=== PATIENT | female | born 2005 | race Caucasian/White ===

== ENCOUNTER 2023-05-09 20:09 | Emergency (ER) | payer MEDICAID, SELFPAY ==
[2023-05-09 20:36] VITALS: BP 105/63; PULSE 97; RESP 16; TEMP 36.7; O2SAT 99; BMI 19.4
[2023-05-09 21:13] LABS: MANUAL DIFF FLAG NO
[2023-05-09 21:14] LABS: Basophils Percent Auto 0.5 % (0-2); Eosinophils Absolute Auto 0.1 X10*3/uL (0.0-0.4); Eosinophils Percent Auto 1.7 % (0-4); Hematocrit 41.6 % (37.0-47.0); Hemoglobin 14.4 g/dl (12.0-16.0); Imm Gran Abs Auto 0.01 X10*3/uL (0.00-0.03); Imm Gran Pct Auto 0.1 % (0.0-0.4); Lymphocytes Absolute Auto 1.7 X10*3/uL (1.2-4.9); Lymphocytes Percent Auto 22.6 % (20-40); Mean Corpuscular HGB Conc 34.6 g/dl (31.0-35.0); Mean Corpuscular Hemoglobin 29.8 pg (27.0-33.0); Mean Corpuscular Volume 86.1 fL (80.0-98.0); Mean Platelet Volume 10.7 fL (9.4-12.3); Monocytes Absolute Auto 0.5 X10*3/uL (0.1-1.2); Neutrophils Absolute Auto 5.2 x10*3/uL (2.0-8.3); Neutrophils Percent Auto 69.1 % (45-73); Platelet Count 258 X10*3/uL (160-400); Red Blood Count 4.83 X10*6/uL (4.20-5.50); White Blood Count 7.5 X10*3/uL (4.8-10.8)
[2023-05-09 21:15] LABS: Appearance Urine Clear; Color Urine Yellow; Glucose Urine UA Negative (Negative); Leukocyte Esterase Urine Negative (Negative); Nitrite Urine Negative (Negative); Specific Gravity - Urine 1.015 (1.005-1.025); Urine Blood Negative (Negative); Urine Ketones Negative (Negative); Urine Protein Negative (Neg-Trace)
[2023-05-09 21:37] LABS: Alanine Aminotransferase 11 U/L (0-31); Albumin Level 4.8 g/dL (3.5-5.0); Alkaline Phosphatase 76 U/L (39-117); Anion Gap 14 (12-20); Aspartate Amino Transferase 15 U/L (5-31); Bilirubin Total 0.5 mg/dL (0.0-1.0); Blood Urea Nitrogen 8 mg/dL (9-16); Calcium 9.8 mg/dL (8.4-10.2); Carbon Dioxide 25 mmol/L (22-29); Chloride 104 mmol/L (96-108); Creatinine Clr Calc Pharmacy 90.8; Estimated Glomerular Filt Rate > 60; Glucose Random 129 mg/dL (60-115); Potassium 3.3 mmol/L (3.3-5.1); Sodium 140 mmol/L (135-145)
--- NOTE | 2023-05-10 00:21 | ED.FEMALEGU ---
HPI - Female Genitourinary General Chief complaint: Urogenital-Female Stated complaint: ? UTI Time Seen by Provider: 05/09/23 23:09 Source: patient Mode of arrival: ambulatory Limitations: no limitations History of Present Illness HPI Narrative: 18 year old female with a past medical history of celiac disease presents to the ED accompanied by her two friends with a history of burning with urination for one month as well as lower back pain. She admits It [place] before I start to pee and after I finish. She claims that she took a UTI test from [facility] that was positive. The patient denies any new soaps or products that could be contributory to the irritation. Pt denies recent sexual activity as well as any concern for STI/STD. Patient admits last menses was last week, pt denies any concern for . She denies any new changes to discharge, denies any new odors or appearance to urine. Currently, patient denies any discomfort. MD elicited complaint: other (burning with urination) Onset (ago): week(s) Location of symptoms: urethra, vaginal and low back Female Urogenital Radiation: Non-Radiating Quality of pain: burning Consistency: intermittent Vaginal discharge: none Vaginal bleeding: none Exacerbating factors: urination Relieving factors: none Associated symptoms: back pain Treatment prior to arrival: NSAIDs Sexual activity: No Related Data Allergies Allergy/AdvReac Type Severity Reaction Status Date / Time No Known Allergies Allergy Verified 05/09/23 20:36 Review of Systems Constitutional: Constitutional: Reports as per HPI and Reports no additional constitutional complaints Cardiovascular: Cardiovascular: Reports no additional cardiovascular complaints Respiratory: Respiratory: Reports no additional respiratory complaints Gastrointestinal: Gastrointestinal: Reports no additional gastrointestinal complaints Genitourinary: Genitourinary: Reports no additional female genitourinary complaints [facility] Social History Social History Advance Directives: No Advance Directives Information Provided: Yes Physical Exam Vital Signs: Vital Signs: Last Vital Signs Temp 98.0 F 05/09/23 20:36 Pulse 97 05/09/23 20:36 Resp 16 05/09/23 20:36 BP 105/63 05/09/23 20:36 Pulse Ox 99 05/09/23 20:36 O2 Del Method Room Air 05/09/23 20:36 BMI result Body Mass Index 19.4 Const: General: cooperative, healthy appearing, comfortable, no acute distress, well developed, alert, awake and Physically active Resp: Effort & Inspection: normal respiratory effort Cardio: Rate: regular rate Rhythm: regular rhythm Heart sounds: S1 normal heart sound present and S2 normal heart sound present GI: Inspection: Yes normal to inspection : General: Yes bladder normal to palpation and Yes no CVA tenderness External Female Exam: normal external appearance and normal appearance of the urethra Speculum Exam - Vagina: abnormal vaginal discharge (thick, white vaginal discharge ) Bimanual exam- vagina & uterus: bladder normal to palpation Back/Spine/Pelvis: Back: no CVA tenderness Course Reevaluation(s) Reevaluation #1: I discussed the lab, apparently the bacterial vaginosis panel does not run on the overnight shift, the patient will be treated empirically for yeast in counter Monistat for BV. Time: 01:23 Medical Decision Making Medical Decision Making MDM Narrative: 18 year old female presents to the emergency room with a one month history of burning before and after urination. Candidiasis (yeast infection) is the most likely diagnosis at this time due to the presence of thick, white discharge on physical exam as well as symptoms of burning with urination. At this time urinalysis rules out UTI, as there are no nitrates or bacteria present within the urine. Urethritis is less likely due to the patient denying any recent sexual activity, furthermore there are no abnormalities on the urinalysis. Pylonephritis is less likely due to no abnormalities on urinalysis or CBC, the patient denies any flank pain or CVA tenderness bilaterally. Bacterial vaginosis is less likely due to the patient denying any recent sexual activity as well as an absence of any malodorous discharge. Differential Diagnosis Differential Diagnoses: The differential diagnosis associated with the presentation includes Candidiasis UTI Urethritis Pylonephritis Bacterial Vaginosis Lab Data 05/09/23 21:08 05/09/23 21:08 Labs: Lab Results 05/09/23 Range/Units 21:08 WBC 7.5 (4.8-10.8) X10*3/uL RBC 4.83 (4.20-5.50) X10*6/uL Hgb 14.4 (12.0-16.0) g/dl Hct 41.6 (37.0-47.0) % MCV 86.1 (80.0-98.0) fL MCH 29.8 (27.0-33.0) pg MCHC 34.6 (31.0-35.0) g/dl RDW 12.0 (11.0-16.0) % Plt Count 258 (160-400) X10*3/uL MPV 10.7 (9.4-12.3) fL Immature Gran % (Auto) 0.1 (0.0-0.4) % Neut % (Auto) 69.1 (45-73) % Lymph % (Auto) 22.6 (20-40) % [place] % (Auto) 6.0 (2-11) % Eos % (Auto) 1.7 (0-4) % Baso % (Auto) 0.5 (0-2) % Lymph # (Auto) 1.7 (1.2-4.9) X10*3/uL [place] # (Auto) 0.5 (0.1-1.2) X10*3/uL Eos # (Auto) 0.1 (0.0-0.4) X10*3/uL Baso # (Auto) 0.0 (0.0-0.2) X10*3/uL Abs Immat Gran (auto) 0.01 (0.00-0.03) X10*3/uL Absolute Neuts (auto) 5.2 (2.0-8.3) x10*3/uL Absolute Nucleated RBC 0.000 (0.0-0.012) X10*3/uL Nucleated RBC % (auto) 0.0 (0.0-0.2) /100WBC Sodium 140 (135-145) mmol/L Potassium 3.3 (3.3-5.1) mmol/L Chloride 104 (96-108) mmol/L Carbon Dioxide 25 (22-29) mmol/L Anion Gap 14 (12-20) BUN 8 L (9-16) mg/dL Creatinine 0.85 (0.5-1.4) mg/dL Estim Creat Clear Calc 90.8 Estimated GFR > 60 Random Glucose 129 H (60-115) mg/dL Calcium 9.8 (8.4-10.2) mg/dL Total Bilirubin 0.5 (0.0-1.0) mg/dL AST 15 (5-31) U/L ALT 11 (0-31) U/L Alkaline Phosphatase 76 (39-117) U/L Total Protein 8.0 (6.5-8.0) g/dL Albumin 4.8 (3.5-5.0) g/dL Urine Color Yellow Urine Appearance Clear Urine pH 7.0 (5.0-9.0) Ur Specific [place] 1.015 (1.005-1.025) Urine Protein Negative (Neg-Trace) mg/dL Urine Glucose (UA) Negative (Negative) mg/dL Urine Ketones Negative (Negative) mg/dL Urine Blood Negative (Negative) Urine Nitrite Negative (Negative) Ur Leukocyte Esterase Negative (Negative) Discharge Plan Discharge Clinical Impression: Vaginitis Patient Disposition: Home, Self-Care Additional Instructions: You were given a dose of Diflucan to treat a yeast infection. You may use [id number] Monistat to treat bacterial vaginosis You may follow-up with Dr Portillo Referrals: Jose Portillo MD [Physician] - (needs obstetrics gynecology physician follow-up) Stand Alone Forms: Work/School Release
[2023-05-10] MEDS: Fluconazole 100 MG TABLET PO (01:31)
[2023-05-10 08:42] LABS: BV Int Neg Control Negative (Negative); BV Int Pos Control Positive (Positive)
== END 2023-05-10 01:35 | disposition home or self-care (01) ==
PROVIDERS: Physician Assistant; Emergency Provider Internal Medicine
DX: N76.0 Acute vaginitis (principal); R30.0 Dysuria; M54.50 Low back pain, unspecified; Z79.899 Other long term (current) drug therapy
CPT/HCPCS: 36415; 80053; 81003; 85025; 87480; 87510; 87660; 99282; 99283